=== PATIENT | female | born 1985 | race American Indian/Alaskan Native ===

== ENCOUNTER 2020-10-23 00:50 | Emergency (ER) | payer BC ==
--- NOTE | 2020-10-23 01:03 | Emergency Department Report ---
ED Abdominal Pain HPI - General Chief Complaint: Nausea/Vomiting/Diarrhea Stated Complaint: ; VOMITING Source: patient Mode of arrival: Ambulatory Limitations: No Limitations - History of Present Illness Initial Comments: Pt is a 35 y/o aaf with presents for abd pain with n//v, states LMP 1 month ago . symptoms are exacerbated by po intake , symptoms are relieved by nothing tried. pt denies fever or chills , last po intake 6hrs ago, with n/v MD Complaint: abdominal pain - Related Data Previous Rx's Medication Instructions Recorded Last Taken Type Doxylamine Succinate/Vit B6 1 each PO Q8H #30 tablet. 10/23/20 Unknown Rx [Diclegis Dr 10-10 mg Tablet] Allergies Allergy/AdvReac Type Severity Reaction Status Date / Time No Known Allergies Allergy Verified 10/23/20 00:59 ED Review of Systems ROS: Stated complaint: ; VOMITING Other details as noted in HPI Constitutional: denies: chills, fever Eyes: denies: eye pain, eye discharge, vision change ENT: denies: ear pain, throat pain Respiratory: orthopnea. denies: cough, shortness of breath, wheezing Cardiovascular: denies: chest pain, palpitations Endocrine: no symptoms reported Gastrointestinal: abdominal pain, nausea, vomiting Genitourinary: denies: urgency, dysuria, discharge Musculoskeletal: denies: back pain, joint swelling, arthralgia Skin: denies: rash, lesions Neurological: denies: headache, weakness, paresthesias Psychiatric: denies: anxiety, depression Hematological/Lymphatic: as per HPI ED Past Medical Hx - Past Medical History Previous Medical History?: Yes Additional medical history: anemia - Surgical History Past Surgical History?: No - Social History Smoking Status: Never Smoker Substance Use Type: None - Medications Home Medications: Home Medications Medication Instructions Recorded Confirmed Last Taken Type Doxylamine Succinate/Vit B6 1 each PO Q8H #30 tablet. 10/23/20 Unknown Rx [Diclegis Dr 10-10 mg Tablet] ED Physical Exam - General Limitations: No Limitations General appearance: alert, in no apparent distress - Head Head exam: Present: atraumatic, normocephalic - Eye Eye exam: Present: normal appearance - ENT ENT exam: Present: mucous membranes moist - Neck Neck exam: Present: normal inspection, full ROM. Absent: tenderness - Respiratory Respiratory exam: Present: normal lung sounds bilaterally. Absent: respiratory distress, wheezes, stridor, chest wall tenderness - Cardiovascular Cardiovascular Exam: Present: regular rate, normal rhythm, normal heart sounds. Absent: systolic murmur, diastolic murmur, rubs, gallop - GI/Abdominal GI/Abdominal exam: Present: soft, normal bowel sounds. Absent: distended, tenderness, guarding, rebound, rigid - External exam: Present: other (deferred by patient) - Extremities Exam Extremities exam: Present: normal inspection - Neurological Exam Neurological exam: Present: alert, oriented X3, CN II-XII intact, normal gait, reflexes normal - Psychiatric Psychiatric exam: Present: normal mood - Skin Skin exam: Present: warm, dry, intact, normal color. Absent: rash ED Course Vital Signs 10/23/20 01:00 Temperature 98.3 F Pulse Rate 78 Respiratory 16 Rate Blood Pressure 128/71 O2 Sat by Pulse 99 Oximetry ED Medical Decision Making - Lab Data Result diagrams: 10/23/20 01:02 10/23/20 01:02 Labs 10/23/20 10/23/20 10/23/20 01:02 01:02 01:02 WBC 6.7 RBC 4.20 Hgb 10.8 Hct 32.5 MCV 78 L MCH 26 L MCHC 33 RDW 18.2 H Plt Count 205 Lymph % (Auto) 31.3 [place] % (Auto) 7.8 H Eos % (Auto) 1.0 Baso % (Auto) 0.2 Lymph # (Auto) 2.1 [place] # (Auto) 0.5 Eos # (Auto) 0.1 Baso # (Auto) 0.0 Seg Neutrophils % 59.7 Seg Neutrophils # 4.0 Sodium 136 L Potassium 3.9 Chloride 103.8 Carbon Dioxide 23 Anion Gap 13 BUN 10 Creatinine 0.7 Estimated GFR > 60 BUN/Creatinine Ratio 14 Glucose 96 Calcium 9.4 Total Bilirubin 0.20 AST 13 ALT 8 Alkaline Phosphatase 32 L Total Protein 7.3 Albumin 4.2 Albumin/Globulin Ratio 1.4 Lipase 20 HCG, Quant 13612 H - Radiology Data Radiology results: report reviewed, image reviewed Single IUP, intact well defined, FHR 139 BMP - Medical Decision Making US OB Single IUP, 6.4 weeks, FHR 130 bpm , Symptoms improved pt tolerating po intake, plan, follow up with OBGYN in 2-3 days , hydrate take medications as prescribed. Critical care attestation.: If time is entered above; I have spent that time in minutes in the direct care of this critically ill patient, excluding procedure time. ED Disposition Clinical Impression: Nausea and vomiting during prior to 22 weeks gestation Qualifiers: Weeks of gestation: less than 8 weeks Qualified Code(s): Z3A.01 - Less than 8 weeks gestation of Disposition: - TO HOME OR SELFCARE Is pt being admited?: No Does the pt Need Aspirin: No Condition: Stable Instructions: Morning Sickness, [id number], Care, First Trimester of , [id number] Prescriptions: Doxylamine Succinate/Vit B6 [Roman Yanez 10-10 mg Tablet] 1 each PO Q8H #30 tablet. Referrals: PHILIP GARNER MD [Primary Care Provider] - 3-5 Days AMERICA HANKS MD [Staff Physician] - 3-5 Days Forms: Work/School Release Form(ED) Time of Disposition: 03:45
[2020-10-23 01:12] LABS: Basophils % (Auto) 0.2 % (0.0-1.8); Eosinophils # (Auto) 0.1 K/mm3 (0.0-0.4); Hematocrit 32.5 % (30.3-42.9); Hemoglobin 10.8 gm/dl (10.1-14.3); Lymphocytes # (Auto) 2.1 K/mm3 (1.2-5.4); Lymphocytes % (Auto) 31.3 % (13.4-35.0); Mean Corpuscular HGB Conc 33 % (30-34); Mean Corpuscular Volume 78 fl (79-97); Monocytes # (Auto) 0.5 K/mm3 (0.0-0.8); Monocytes % (Auto) 7.8 % (0.0-7.3); Platelet Count 205 K/mm3 (140-440); Red Cell Distribution Width 18.2 % (13.2-15.2)
[2020-10-23 01:35] LABS: Alanine Aminotransferase 8 units/L (7-56); Albumin 4.2 g/dL (3.9-5); Blood Urea Nitrogen 10 mg/dL (7-17); Calcium 9.4 mg/dL (8.4-10.2); Hemolysis Index 0
[2020-10-23 01:37] LABS: BUN/Creatinine Ratio 14
[2020-10-23] MEDS ORDERED: METOCLOPRAMIDE 10 MG TAB PO ONE (02:26)
[2020-10-23] MEDS ORDERED: diphenhydrAMINE 25 MG CAP PO ONE (02:26)
[2020-10-23] MEDS ORDERED: diphenhydrAMINE 50 MG/ML VIAL IV ONE (02:28)
[2020-10-23] MEDS ORDERED: SODIUM CHLORIDE 0.9% 1000 ML 1,000 ML IV ONE (02:28)
[2020-10-23] MEDS ORDERED: METOCLOPRAMIDE 10 MG/2 ML INJ IV ONE (02:28)
--- NOTE | 2020-10-23 03:32 | Ultrasound Report ---
ULTRASOUND OBSTETRIC INDICATION / CLINICAL INFORMATION: abd pain pos preg. TECHNIQUE: Transabdominal. COMPARISON: None available. FINDINGS: GESTATIONAL SAC: Well-defined oval shape and intrauterine in location. YOLK SAC: No significant abnormality. EMBRYO/FETUS: No significant abnormality. - [place]-Rump Length = 0.67 cm = 6.4 weeks.days - Heart Rate, beats per minute (if present) = 130 ADNEXA: No significant abnormality. FREE FLUID: None. ADDITIONAL FINDINGS: None. IMPRESSION: 1. Single, living intrauterine with estimated sonographic age of 6.4 weeks.days. Signer Name: Dario Gómez MD Signed: 10/23/2020 3:28 AM Workstation Name: [id number]
[2020-10-23 03:39] LABS: Bilirubin,Urine NEG (Negative); Blood,Urine NEG (Negative); Color,Urine Yellow (Yellow); Hyaline Casts,Urine 1 /LPF; Mucus,Urine FEW /HPF; Protein,Urine <15 mg/dL mg/dL (Negative); Urobilinogen,Urine < 2.0 mg/dL (<2.0)
[2020-10-23 03:40] VITALS: BP 132/73
== END 2020-10-23 04:31 | disposition home or self-care (01) ==
LOC: ED 00:50
DX: O20.9 Hemorrhage in early pregnancy, unspecified (principal); Z3A.22 22 weeks gestation of pregnancy; Z79.899 Other long term (current) drug therapy
CPT/HCPCS: 36415; 76801; 80053; 81001; 83690; 84702; 85025; 96361; 96374; 96375; 99284; J1200; J2765; J7030

== ENCOUNTER 2021-03-28 21:08 | Outpatient (CLI) | payer BC ==
[2021-03-28 22:03] VITALS: BP 117/61
[2021-03-28 22:59] LABS: Bacteria,Urine 1+ /HPF (Negative); Bilirubin,Urine NEG (Negative); Blood,Urine NEG (Negative); Color,Urine Yellow (Yellow); Mucus,Urine 1+ /HPF; Urobilinogen,Urine < 2.0 mg/dL (<2.0); WBC,Urine < 1.0 /HPF (0.0-6.0)
[2021-03-28] MEDS ORDERED: LACTATED RINGERS 1,000 ML IV ONE (23:15)
[2021-03-28] MEDS ORDERED: D5W/LACTATED RINGERS 1,000 ML IV SCH (23:45)
[2021-03-29] MEDS ORDERED: ONDANSETRON 4 MG/2 ML INJ IV ONE (00:13)
== END 2021-03-29 01:05 | disposition home or self-care (01) ==
LOC: TRG 21:08 → APU 21:25 → TRG 03-29 01:05
DX: O21.2 Late vomiting of pregnancy (principal); Z3A.29 29 weeks gestation of pregnancy
CPT/HCPCS: 59025; 81001; 96361; 96365; J2405; J7120; J7121; 96360; 96374